=== PATIENT | male | born 1940 | race Two or more races ===

== ENCOUNTER 2017-09-18 19:49 | Inpatient (IN) | payer MEDICARE, OTHER ==
[~2017-09-18] VITALS: Ht 170.2 cm; Wt 67.1 kg
--- NOTE | 2017-09-18 20:01 | NUR ---
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 PT AOX3 RR EVEN AND UNLABORED. NO SOB NOTED. NAD NOTED. NO NVD AT THIS TIME. PT GOWNED AND PLACED ON MONITOR WAITING FOR MD RAMÍREZ. PT NOT DIAPHORETIC.
[2017-09-18 20:09] LABS: BASOPHILS % (AUTO) 0.6 % (0.0-2.0); EOSINOPHILS # (AUTO) 0.3 /CMM (0.0-0.7); EOSINOPHILS % (AUTO) 3.5 % (0.0-6.0); HEMATOCRIT 37 % (39-51); HEMOGLOBIN 12.4 g/dL (13.5-17.5); LYMPHOCYTES # (AUTO) 0.4 /CMM (0.8-4.8); LYMPHOCYTES % (AUTO) 5.1 % (20.0-44.0); MEAN CORPUSCULAR HEMOGLOBIN 30 PG (26.0-33.0); MEAN CORPUSCULAR HGB CONC 34 g/dl (31.0-36.0); MEAN CORPUSCULAR VOLUME 90 fL (80-96); MONOCYTES % (AUTO) 13.3 % (2.0-12.0); NEUTROPHILS # (AUTO) 5.9 /CMM (1.8-8.9); NEUTROPHILS % (AUTO) 77.5 % (43.0-81.0); PLATELET COUNT (AUTO) 165 /CMM (150-450); RDW COEFFICIENT OF VARIATION 18.5 (11.5-15.0); RED BLOOD CELL COUNT(AUTO) 4.09 MIL/uL (4.5-6.0); WHITE BLOOD COUNT (AUTO) 7.6 K/uL (4.3-11.0)
[2017-09-18 20:21] LABS: CALCIUM, SERUM 8.6 mg/dL (8.5-10.1); CARBON DIOXIDE 29 mmol/L (21-32); CHLORIDE 102 mmol/L (98-107); GLUCOSE 119 mg/dL (74-106); POTASSIUM 4.2 mmol/L (3.5-5.1); SODIUM SERUM 135 mmol/L (136-145); UREA NITROGEN, BLOOD 13 mg/dL (7-18)
[2017-09-18 20:25] LABS: INR 0.96 (0.85-1.15)
[2017-09-18 20:30] LABS: TROPONIN I < 0.017 ng/mL (0.00-0.056)
--- NOTE | 2017-09-18 20:43 | NUR ---
MADI [phone]
--- NOTE | 2017-09-18 20:48 | NUR ---
DR. BURCIAGA AT BEDSIDE SPEKAING TO PT AND FAMILY
--- NOTE | 2017-09-18 21:19 | NUR ---
BED 103
[2017-09-18] MEDS ORDERED: IV NS 0.9% 1,000 ML IV PRN (21:23)
[2017-09-18] MEDS ORDERED: ZOLPIDEM TARTRATE 5 MG TABLET PO PRN (21:30)
[2017-09-18] MEDS ORDERED: MORPHINE SULFATE INJ 4 MG/ML DISP.SYRIN IV PRN (21:30)
[2017-09-18] MEDS ORDERED: ACETAMINOPHEN 325 MG TABLET PO ONE (21:30)
[2017-09-18] MEDS ORDERED: ACETAMINOPHEN 325 MG TABLET PO PRN (21:30)
[2017-09-18] MEDS ORDERED: Z GUARD REMEDY 2 OZ OINT TP PRN (21:30)
[2017-09-18] MEDS ORDERED: ONDANSETRON HCL/PF 4 MG/2 ML VIAL IVP PRN (21:30)
[2017-09-18] MEDS ORDERED: MAG HYDROX/AL HYDROX/SIMETH 30 ML UDC PO PRN (21:30)
[2017-09-18] MEDS ORDERED: MAGNESIUM HYDROXIDE 30 ML UDC PO PRN (21:30)
[2017-09-18] MEDS ORDERED: ACETAMINOPHEN 325 MG TABLET ONE (21:42)
--- NOTE | 2017-09-18 21:55 | NUR ---
REPORT GIVEN MASHA FOR SILVIA
--- NOTE | 2017-09-18 21:58 | NUR ---
CALLED FAMILY FOR MED LIST, SON STATES MEDICATION AT PT HOUSE, WILL BEING MEDS IN AM.
[2017-09-18 22:00] VITALS: BP 117/71
--- NOTE | 2017-09-18 22:00 | NUR ---
RN NOTES RECEIVED FROM ER A 77YR OLD CROATIAN VIA STRETCHER WITH NO DISTRESS NOTED. BREATHING EVEN AND UNLABORED. ALERT AND ORIENTED, SPEAKS A LITTLE ARABIC. COMPLAINT OF CHEST PAIN 12/01. SKIN ASSESSMENT DONE, NO SKIN ISSUES. SKIN INTACT. VITAL SIGNS WNL. KEPT CLEAN AND DRY.
--- NOTE | 2017-09-18 22:13 | NUR ---
PT TRANSFERRED PER [facility]S PROTOCOL.
[2017-09-19] VITALS: BP 97/56
[2017-09-19] MEDS ORDERED: ENOXAPARIN SODIUM 80 MG/0.8 ML DISP.SYRIN SQ ONE ×2 (01:00→01:10)
[2017-09-19 04:00] VITALS: BP 119/72
[2017-09-19 06:37] LABS: BASOPHILS % (AUTO) 0.4 % (0.0-2.0); EOSINOPHILS # (AUTO) 0.3 /CMM (0.0-0.7); EOSINOPHILS % (AUTO) 3.7 % (0.0-6.0); HEMATOCRIT 35 % (39-51); LYMPHOCYTES # (AUTO) 0.3 /CMM (0.8-4.8); LYMPHOCYTES % (AUTO) 4.1 % (20.0-44.0); MEAN CORPUSCULAR HEMOGLOBIN 31 PG (26.0-33.0); MEAN CORPUSCULAR HGB CONC 34 g/dl (31.0-36.0); MEAN CORPUSCULAR VOLUME 93 fL (80-96); MONOCYTES # (AUTO) 1.2 /CMM (0.1-1.30); MONOCYTES % (AUTO) 15.9 % (2.0-12.0); NEUTROPHILS # (AUTO) 5.7 /CMM (1.8-8.9); NEUTROPHILS % (AUTO) 75.9 % (43.0-81.0); PLATELET COUNT (AUTO) 131 /CMM (150-450); RDW COEFFICIENT OF VARIATION 19.7 (11.5-15.0); RED BLOOD CELL COUNT(AUTO) 3.82 MIL/uL (4.5-6.0); WHITE BLOOD COUNT (AUTO) 7.4 K/uL (4.3-11.0)
[2017-09-19 06:42] LABS: CHOLESTEROL 154 mg/dL (<200); HDL CHOLESTEROL 36 mg/dL (40-60); LDL 110 mg/dL (0-99); TRIGLYCERIDES 78 mg/dL (30-150)
--- NOTE | 2017-09-19 06:46 | NUR ---
RN CLOSING NOTES PATIENT IN BED, NO DISTRESS NOTED. BREATHING EVEN AND UNLABORED. NO COMPLAINT OF PAIN OF THIS TIME. VITAL SIGNS WNL. KEPT CLEAN AND DRY. WILL ENDORSE TO AM SHIFT FOR CONTINUITY OF CARE.
[2017-09-19 06:57] LABS: CALCIUM, SERUM 8.4 mg/dL (8.5-10.1); CARBON DIOXIDE 27 mmol/L (21-32); CHLORIDE 103 mmol/L (98-107); CREATININE 0.8 mg/dL (0.6-1.3); GLUCOSE 101 mg/dL (74-106); PHOSPHORUS 3.2 mg/dL (2.5-4.9); SODIUM SERUM 137 mmol/L (136-145); UREA NITROGEN, BLOOD 14 mg/dL (7-18)
--- NOTE | 2017-09-19 07:33 | NUR ---
DIRECTOR OF CREATIVE SERVICES OPENING NOTES PT RECEIVED AWAKE IN BED IN NO ACUTE SIGNS OF DISTRESS. A/O X3, SAME VERBALLY RESPONSIVE, DENIES PAIN OR DISCOMFORTS AT THIS TIME. ON ROOM AIR, BREATHING EVEN WITH NO SOB NOTED. ON TELE MONITORING WITH CURRENT READING OF SR AND HR OF 83, NO C/O CHEST PAIN VOICED AT THIS TIME. IV ACCESS ON LEFT AC INTACT AND PATENT, IVF OF NS @75ML/HR INFUSING, NO SIGNS OF INFILTRATION NOTED. BED IN LOW AND LOCKED POSITION. CALL LIGHT WITHIN EASY REACH. SAFE AND HAZARD FREE ENVIRONMENT MAINTAINED. WILL CONTINUE TO MONITOR PT ACCORDINGLY
[2017-09-19 08:00] VITALS: BP 124/75
[2017-09-19] MEDS: ASPIRIN 81 MG TAB.CHEW PO SCH (08:45)
[2017-09-19] MEDS: HYDROCODONE/APAP 5/325MG 1 EACH TABLET PO PRN ×2 (08:46→16:32)
[2017-09-19 12:00] VITALS: BP 100/61
--- NOTE | 2017-09-19 15:40 | NUR ---
RN NOTES PATIENT SEEN AND EVALUATED BY DR. ARLEEN GRAHAM, MADE AWARE THAT PT HAS HIGH BNP [phone]. AT FIRST DR GRAHAM ORDERED TO DO CT PULMONARY ANGIOGRAM BUT DEFERRED FOR NOW THAT PT WILL HAVE NM QUANTITATIVE LUNG SCAN. EXPLAINED PROCEDURE TO PT AND VERBALIZED UNDERSTANDING. CONSENT SIGNED AND FILED ON CHART. RADIOLOGY AWARE OF SAID PROCEDURE. WILL F/U.
[2017-09-19 16:00] VITALS: BP 115/67
--- NOTE | 2017-09-19 16:32 | NUR ---
RN NOTES PT C/O PAIN ON LOWER LEFT SIDE OF CHEST WITH INTENSITY OF 5/10. PRN NORCO 5/325MG TAB GIVEN P.O. WILL MONITOR EFFECTIVENESS OF PAIN MED.
--- NOTE | 2017-09-19 16:56 | NUR ---
RN NOTES RADIOLOGIST CAME TO UNIT AND SAID THAT THE ORDER SHOULD BE "NM PULMONARY PERFUSION WITH VENTILATION" NOT "NM LUNG QUANTITATIVE SCAN". RADIOLOGIST SPEAKS PALAU[place] AND EXPLAINED PROCEDURE TO PT AND PT VERBALIZED UNDERSTANDING. RADIOLOGIST WILL COME BACK IN 30MINUTES TO PICK PATIENT.
--- NOTE | 2017-09-19 18:10 | NUR ---
RN NOTES PATIENT WENT AND RETURNED FROM "NM PULMONARY PERFUSION WITH VENTILATION" VIA WHEELCHAIR. WILL FOLLOW-UP RESULTS.
--- NOTE | 2017-09-19 18:28 | NUR ---
NM:LUNG V/Q WAS COMPLETED. TECH:RB
--- NOTE | 2017-09-19 18:37 | NUR ---
MANAGER TRADE CLOSING NOTES PT AWAKE AND RESTING IN BED. A/O X3. ABLE TO MAKE NEEDS KNOWN. ON ROOM AIR AT THIS TIME, TOLERATING WELL, BREATHING EVEN WITH NO SOB NOTED. ON TELE MONITORING WITH CURRENT READING OF SR AND HR OF 78, NO C/O CHEST PAIN VOICED AT THIS TIME. IV ACCESS ON LEFT WRIST G#22 INTACT AND PATENT, EASILY TO FLUSH. KEPT BED IN LOW AND LOCKED POSITION. CALL LIGHT WITHIN EASY REACH. SAFE AND HAZARD FREE ENVIRONMENT MAINTAINED. ALL NEEDS AND CARE ATTENDED WELL. WILL ENDORSED TO CMM PROGRAMMER NURSE FOR SILVIA.
--- NOTE | 2017-09-19 19:20 | NUR ---
DIRECTOR INFORMATION OPENING NOTES RECEIVED REPORT FROM AM RN. PATIENT A/A/O X3, ABLE TO MAKE NEEDS KNOWN. BREATHING EVEN & UNLABORED, TOLERATING O2 2L VIA NC. DENIES SOB OR DIFFICULTY BREATHING BUT C/O PAIN ON LEFT SIDE OF RIB CAGE AREA. ON TELE W/ SINUS RHYTHM IN THE 70S. DENIES ANY CHEST PAIN OR DISCOMFORT @ THIS TIME. LEFT WRIST IV #22 INTACT & PATENT W/ DRESSING CDI, SALINE LOCKED. PATIENT RESTING COMFORTABLY IN BED. SAFETY MEASURES IN PLACE & CALL LIGHT WITHIN REACH. WILL CONTINUE TO MONITOR.
[2017-09-19 20:00] VITALS: BP 93/61
[2017-09-19] MEDS: ATORVASTATIN 10 MG TABLET PO SCH (21:20)
[2017-09-19] MEDS: ENOXAPARIN SODIUM 40 MG/0.4 ML DISP.SYRIN SQ SCH (21:25)
[2017-09-20] VITALS: BP 104/72
[2017-09-20 04:00] VITALS: BP 109/71
--- NOTE | 2017-09-20 07:12 | NUR ---
[employer] COACH NOTES RECEIVED PT ON BED. ALERT ORIENTED X3. ON NASAL CANNULA SATURATING WELL. NO SIGN OF RESPI DISTRESS. IV ACCESS ON L WRIST #22 SL NO REDNESS OR PAIN. HEAD OF BED ELEVATED. SIDE RAILS UP. CALL LIGHT IS WITHIN REACH. WILL CONTINUE TO MONITOR PT CLOSELY.
[2017-09-20 08:00] VITALS: BP 108/69
[2017-09-20] MEDS: ASPIRIN 81 MG TAB.CHEW PO SCH (08:56)
--- NOTE | 2017-09-20 10:50 | NUR ---
MS RN NOTES PT REMOVING HIS NASAL CANNULA STATING HE DOES NOT WANT IT. EXPLAINED THE BENEFITS OF OXYGEN SUPPLEMENTATION.
--- NOTE | 2017-09-20 15:09 | NUR ---
MS RN NOTES PT STILL WAITING FOR THE CHEST XRAY WITH CONTRAST. RADIOLOGY FOLLOWED UP.
[2017-09-20 16:00] VITALS: BP 127/73
--- NOTE | 2017-09-20 18:48 | NUR ---
MS RN NOTES NO ACUTE CHANGES NOTED DURING THE SHIFT. DUE MEDS GIVEN. PROVIDED COMFORT AND SAFETY. WILL ENDORSED TO THE PM NURSE FOR SILVIA.
--- NOTE | 2017-09-20 19:30 | NUR ---
MS RN NOTE: PATIENT RESTING IN BED, NO ACUTE DISTRESS NOTED. BREATHING EVEN AND UNLABORED, NO SOB NOTED. IV TO LEFT WRIST IN PLACE. BED LOCKED AND IN LOWEST POSITION, CALL LIGHT IN REACH. WILL CONTINUE TO MONITOR.
[2017-09-20 20:00] VITALS: BP 135/68
[2017-09-20] MEDS: ATORVASTATIN 10 MG TABLET PO SCH (21:25)
[2017-09-20] MEDS: ENOXAPARIN SODIUM 40 MG/0.4 ML DISP.SYRIN SQ SCH (21:27)
--- NOTE | 2017-09-21 04:00 | NUR ---
MS RN NOTE: PATIENT SLEEPING, NO ACUTE DISTRESS NOTED. BREATHING EVEN AND UNLABORED, NO SOB NOTED. BED LOCKED AND IN LOWEST POSITION, CALL LIGHT IN REACH. WILL CONTINUE TO MONITOR.
--- NOTE | 2017-09-21 06:10 | NUR ---
MS RN NOTE: PATIENT RESTING IN BED, NO ACUTE DISTRESS NOTED. BREATHING EVEN AND UNLABORED, NO SOB NOTED. IV TO LEFT WRIST IN PLACE. BED LOCKED AND IN LOWEST POSITION, CALL LIGHT IN REACH. WILL ENDORSE TO DAY NURSE TO CONTINUE WITH PLAN OF CARE.
--- NOTE | 2017-09-21 07:09 | NUR ---
MS RN NOTES RECEIVED PT ON BED SLEEPING, ALERT ORIENTED X3 WITH EPISODES OF CONFUSION. ON NC 2LPM SATURATING WELL. NO SIGN OF RESPIRATORY DISTRESS. IV ACCESS ON L WRIST #22 PATENT , NO SIGN OF REDNESS OR PAIN. HEAD OF BED ELEVATED. SIDE RAILS UP. CALL LIGHT WITHIN REACH. WILL MONITOR PT CLOSELY.
[2017-09-21 08:00] VITALS: BP 117/71
[2017-09-21] MEDS ORDERED: LEVOFLOXACIN (500MG) 500 MG TABLET PO SCH (09:00)
[2017-09-21] MEDS: ASPIRIN 81 MG TAB.CHEW PO SCH (09:06)
[2017-09-21] MEDS ORDERED: LEVO500T2 PO (10:00)
[2017-09-21] MEDS ORDERED: LORAZEPAM INJ 2 MG/ML VIAL ONE (12:42)
--- NOTE | 2017-09-21 12:57 | NUR ---
MS RN NOTES DISCHARGE TEACHING DONE. EXIT CARE DONE. [facility].
--- NOTE | 2017-09-21 13:00 | NUR ---
PULLED OUT ATIVAN 1MG FOR [phone] HOWEVER CANCELLED ATIVAN ORDER. ATIVAN WAS WASTED AND WITNESSED BY WEN HUGGINS.
== END 2017-09-21 12:50 | disposition home or self-care (01) | DRG 193 ==
LOC: ER 19:53 → TELE1 21:52 → MEDSG1 09-20 08:20
PROVIDERS: ADMIT Internal Medicine; ATTEND Internal Medicine
DX: J15.9 Unspecified bacterial pneumonia (principal); J96.01 Acute respiratory failure with hypoxia; I50.33 Acute on chronic diastolic (congestive) heart failure; I24.9 Acute ischemic heart disease, unspecified; R07.81 Pleurodynia; D63.8 Anemia in other chronic diseases classified elsewhere; K21.9 Gastro-esophageal reflux disease without esophagitis; Z85.028 Personal history of other malignant neoplasm of stomach; Z87.891 Personal history of nicotine dependence; Z79.01 Long term (current) use of anticoagulants; Z92.21 Personal history of antineoplastic chemotherapy; Z92.3 Personal history of irradiation
CPT/HCPCS: 36415; 71045-TC; 71250-TC; 71260-TC; 78582; 80048-TC; 80061-TC; 83735-TC; 83880; 84100-TC; 84484-TC; 85025-TC; 85378-TC; 85730-TC; 87081-TC; 93307-TC; A4606; A9540; A9567; J1650; J2060; J7030; Z7610